=== PATIENT | female | born 1990 | race American Indian/Alaskan Native ===

== ENCOUNTER 2018-03-07 09:46 | Emergency (ER) | payer OTHER ==
[~2018-03-07] VITALS: Ht 152.4 cm; Wt 56.7 kg
[~2018-03-07 09:46] MED LIST: KETO10TA2 PO
== END 2018-03-07 13:42 | disposition home or self-care (01) ==
LOC: ER 09:46
DX: N83.291 Other ovarian cyst, right side (principal); R10.2 Pelvic and perineal pain

== ENCOUNTER → 2018-09-05 | Emergency (ER) | payer OTHER ==
[~2018-09-05] VITALS: Ht 152.4 cm; Wt 59.0 kg
[~2018-09-05] MED LIST changes: +FOLIC ACID0.8 M1; +OBSTETRIX DHA1 EACH
== END | disposition left against medical advice (07) ==
LOC: ER 21:47
DX: Z53.20 Procedure and treatment not carried out because of patient's decision for unspecified reasons (principal)

== ENCOUNTER 2018-12-12 04:39 | Outpatient (CLI) | payer OTHER | END 2018-12-12 12:05 | disposition home or self-care (01) | LOC: OBS/DEL 04:39 | DX: O60.03 Preterm labor without delivery, third trimester (principal) ==

== ENCOUNTER 2019-01-19 10:03 | Inpatient (IN) | payer OTHER ==
[~2019-01-19] VITALS: Ht 152.4 cm; Wt 64.9 kg
[2019-01-21] MEDS ORDERED: NIFEDIPINE ER30 MG PO (06:57)
== END 2019-01-21 09:30 | disposition home or self-care (01) | DRG 833 ==
LOC: OB/GYN 10:03 → LDR 10:03 → OB/GYN 01-20 09:55
PROVIDERS: ADMIT Obstetrics & Gynecology
PROC: 4A1HXCZ Monitoring of Products of Conception, Cardiac Rate, External Approach (ICD-10-PCS; principal; 2019-01-19)
DX: O47.03 False labor before 37 completed weeks of gestation, third trimester (principal); O99.820 Streptococcus B carrier state complicating pregnancy

== ENCOUNTER 2019-01-28 17:47 | Outpatient (CLI) | payer OTHER ==
[~2019-01-28 17:47] MED LIST changes: +NIFEDIPINE ER30 MG PO
== END 2019-01-29 09:43 | disposition home or self-care (01) ==
LOC: OBS/DEL 17:47
DX: O47.1 False labor at or after 37 completed weeks of gestation (principal)

== ENCOUNTER 2019-02-06 02:48 | Inpatient (IN) | payer OTHER ==
[~2019-02-06] VITALS: Ht 152.4 cm; Wt 65.8 kg
== END 2019-02-08 14:32 | disposition home or self-care (01) | DRG 807 ==
LOC: OBS/DEL 02:48 → LDR 04:16 → OB/GYN 08:58
PROVIDERS: ADMIT Obstetrics & Gynecology
PROC: 10E0XZZ Delivery of Products of Conception, External Approach (ICD-10-PCS; principal; 2019-02-06)
PROC: 10907ZC Drainage of Amniotic Fluid, Therapeutic from Products of Conception, Via Natural or Artificial Opening (ICD-10-PCS; 2019-02-06)
PROC: 3E033VJ Introduction of Other Hormone into Peripheral Vein, Percutaneous Approach (ICD-10-PCS; 2019-02-06)
PROC: 4A1HXCZ Monitoring of Products of Conception, Cardiac Rate, External Approach (ICD-10-PCS; 2019-02-06)
DX: O80 Encounter for full-term uncomplicated delivery (principal); Z37.0 Single live birth; Z3A.38 38 weeks gestation of pregnancy

== ENCOUNTER 2021-05-07 05:06 | Day surgery (SDC) | payer OTHER | END 2021-05-07 14:35 | disposition home or self-care (01) | LOC: CIR.AMB 05:06 | PROVIDERS: ATTEND Obstetrics & Gynecology | DX: N76.4 Abscess of vulva (principal); N76.2 Acute vulvitis ==

== ENCOUNTER 2022-09-06 08:11 | Emergency (ER) | payer OTHER ==
[~2022-09-06] VITALS: Ht 152.4 cm; Wt 61.2 kg
[2022-09-06] MEDS ORDERED: CIPRO500 MG (08:21)
== END 2022-09-06 10:22 | disposition home or self-care (01) ==
LOC: ER 08:11
DX: J06.9 Acute upper respiratory infection, unspecified (principal); Z20.822 Contact with and (suspected) exposure to COVID-19

== ENCOUNTER 2023-02-08 08:23 | Emergency (ER) | payer OTHER ==
[~2023-02-08] VITALS: Ht 152.4 cm; Wt 61.2 kg
[~2023-02-08 08:23] MED LIST changes: +CIPRO500 MG
[2023-02-08 10:42] LABS: HEMATOCRIT 38.2 % (36.0-45.00); HEMOGLOBIN 12.4 g/dL (12.0-15.00); MEAN CELL VOLUME 79.6 fL (80.00-100.00); MEAN CORPUSCULAR HEMOGLOBIN 25.9 pg (27.00-32.0); MEAN CORPUSCULAR HGB CONC 32.6 g/dl (32.0-36.0); PLATELET COUNT 336 K/uL (150-450); RED CELL DISTRIBUTION WIDTH 14.3 % (11.5-14.5)
== END 2023-02-08 12:40 | disposition home or self-care (01) ==
LOC: ER 08:24
DX: J06.9 Acute upper respiratory infection, unspecified (principal); Z88.2 Allergy status to sulfonamides; Z20.822 Contact with and (suspected) exposure to COVID-19

== ENCOUNTER 2023-02-12 02:02 | Emergency (ER) | payer OTHER ==
[~2023-02-12] VITALS: Ht 152.4 cm; Wt 61.2 kg
[2023-02-12] MEDS ORDERED: BUDESONIDE0.5 MG/2 M IH (06:41)
[2023-02-12] MEDS ORDERED: ZYNCOF 20-400120 ML PO (06:41)
[2023-02-12] MEDS ORDERED: ALBUTEROL2.5 MG/3 M IH (06:41)
== END 2023-02-12 06:48 ==
LOC: ER 02:03
DX: J40 Bronchitis, not specified as acute or chronic (principal); Z88.2 Allergy status to sulfonamides

== ENCOUNTER 2023-03-08 13:05 | Emergency (ER) | payer OTHER ==
[~2023-03-08] VITALS: Ht 152.4 cm; Wt 61.2 kg
[~2023-03-08 13:05] MED LIST changes: +ALBUTEROL2.5 MG/3 M IH; +BUDESONIDE0.5 MG/2 M IH; +ZYNCOF 20-400120 ML PO
[2023-03-08 15:34] LABS: HEMOGLOBIN 12.9 g/dL (12.0-15.00); MEAN CELL VOLUME 78.8 fL (80.00-100.00); PLATELET COUNT 289 K/uL (150-450); RED BLOOD COUNT 4.95 M/uL (4.00-6.00); RED CELL DISTRIBUTION WIDTH 14.6 % (11.5-14.5)
[2023-03-08 16:04] LABS: ALBUMIN 3.7 gm/dL (3.4-5.0); ALKALINE PHOSPHATASE 64 U/L (50-136); ALT/SGPT 14 U/L (12-78); AMYLASE 45 U/L (25-115); ANION GAP 9 (10.0-20.0); AST/SGOT 14 U/L (15-37); BLOOD UREA NITROGEN 10 mg/dL (7-18); BUN CREA RATIO 20 (7.0-25.0); CALCIUM 9.4 mg/dL (8.5-10.1); CARBON DIOXIDE 31 mEq/L (21-32); CHLORIDE 103 mmol/L (98-107); CREATININE SERUM 0.51 mg/dL (0.55-1.02); GFR 138.88; GLOBULINA 3.7 G/DL (2.4-3.5); GLUCOSE FASTING 89 mg/dL (65-100); LIPASE 16 U/L (13-75); OSMOLALITY SERUM 276 MOSM/KG (275-295); POTASSIUM 3.96 mEq/L (3.5-5.1); SODIUM 139 mmol/L (136-145); TOTAL PROTEIN 7.4 gm/dL (6.4-8.2)
[2023-03-08 16:11] LABS: HCG QUANTITATIVE < 1 mUI/mL (1-3)
== END 2023-03-08 16:32 | disposition home or self-care (01) ==
LOC: ER 13:06
PROVIDERS: General Practice
DX: J10.1 Influenza due to other identified influenza virus with other respiratory manifestations (principal); B34.9 Viral infection, unspecified; R11.10 Vomiting, unspecified; Z20.822 Contact with and (suspected) exposure to COVID-19; Z88.1 Allergy status to other antibiotic agents

== ENCOUNTER → 2024-03-17 | Emergency (ER) | payer OTHER ==
[~2024-03-17] VITALS: Ht 152.4 cm; Wt 62.1 kg
[~2024-03-17] MED LIST changes: +CIPRO500 MG PO; +KETOROLAC TROMETHAMINE 10 MG TABLET PO ONE; +KETOROLAC TROMETHAMINE 10 MG TABLET PO STA; +PYRIDIUM DS200 MG PO
[2024-03-17 02:16] VITALS: BP 144/84; O2SAT 98
[2024-03-17 03:05] LABS: PH,URINE 6.5 (5.0-8.0); URINE APPEARANCE Cloudy; URINE BILIRRUBIN Negative (NEGATIVE); URINE BLOOD Small; URINE COLOR Yellow; URINE GLUCOSE Negative (NEGATIVE); URINE KETONE Negative (NEGATIVE); URINE LEUKOCYTE Large; URINE NITRATE Negative; URINE PROTEIN 30 (NEGATIVE); URINE UROBILINOGEN 0.2 E.U./dl
[2024-03-17 03:08] LABS: URINE BACTERIA 1699.9 uL (0.0-1933); URINE EPITHELIAL CELLS 50.6 uL (0.0-38.8); URINE RBC 142.2 uL (0.0-20.8); URINE WBC 380.4 uL (0.0-23.2)
[2024-03-17 03:15] LABS: URINE CAST 0.14 uL (0.0-1.40)
[2024-03-17 03:30] LABS: URINE CRYSTALS FEW /HPF
== END | disposition home or self-care (01) ==
LOC: ER 02:05
PROVIDERS: General Practice
DX: N39.0 Urinary tract infection, site not specified (principal); B95.7 Other staphylococcus as the cause of diseases classified elsewhere; Z88.8 Allergy status to other drugs, medicaments and biological substances

== ENCOUNTER 2024-05-31 06:36 | Emergency (ER) | payer OTHER ==
[~2024-05-31] VITALS: Ht 152.4 cm; Wt 61.2 kg
[~2024-05-31 06:36] MED LIST changes: -KETOROLAC TROMETHAMINE 10 MG TABLET PO ONE; -KETOROLAC TROMETHAMINE 10 MG TABLET PO STA
[2024-05-31] MEDS ORDERED: KETOROLAC TROMETHAMINE 60 MG VIAL IM STA (08:13)
== END 2024-05-31 08:26 | disposition home or self-care (01) ==
LOC: ER 06:39
DX: J06.9 Acute upper respiratory infection, unspecified (principal); Z88.8 Allergy status to other drugs, medicaments and biological substances